=== PATIENT | female | born 1980 | race Caucasian/White ===

== ENCOUNTER → 2021-07-25 | Outpatient (CLI) | payer OTHER ==
[2015-10-24 21:44] VITALS: BP 117/67
[~2021-07-25] MED LIST: CIPR500T2 PO; HYDR-3164 PO
--- NOTE | 2021-07-25 23:31 | KCIC ---
Exam: XR BILATERAL HAND 3 VIEWS History: Polyarthralgia Comparison: None. Findings: 3 views of the right hand and 3 views the left hand. Osseous mineralization is normal. No acute fract ure or dislocaton. No significant joint space narrowing or osteophyte formation. No aggressive osseou s erosive process. No focal soft tissue swelling. Impression: 1. No significant degenerative changes or aggressive osseous erosive process in the bilateral hands. Electronically signed by: Albert Orozco MD (07/25/2021 11:28 PM) [facility]
== END ==
LOC: KCIC 13:49
PROVIDERS: ATTEND Internal Medicine Rheumatology
DX: M25.50 Pain in unspecified joint (principal)
CPT/HCPCS: 73130-50